=== PATIENT | female | born 1955 | race Caucasian/White ===

== ENCOUNTER 2017-07-11 08:14 | Outpatient (CLI) | payer OTHER | END 2017-07-11 08:15 | disposition home or self-care (01) | LOC: BICULT 08:14 | PROVIDERS: ATTEND Nurse Practitioner | DX: R10.10 Upper abdominal pain, unspecified (principal); K80.20 Calculus of gallbladder without cholecystitis without obstruction | CPT/HCPCS: 76700 ==

== ENCOUNTER 2017-07-20 09:46 | Outpatient (CLI) | payer OTHER ==
[2017-07-20 11:42] LABS: Folate (Folic Acid) 12.7 ng/mL (7.0-31.4)
--- NOTE | 2017-07-20 21:56 | EKG ---
Test Reason : Blood Pressure : / mmHG Vent. Rate : 057 BPM Atrial Rate : 057 BPM P-R Int : 142 ms QRS Dur : 076 ms QT Int : 410 ms P-R-T Axes : 051 004 010 degrees QTc Int : 399 ms Sinus bradycardia Cannot rule out Anterior infarct , age undetermined /Doubtful Abnormal ECG When compared with ECG of 11-MAR-2010 10:05, Questionable change in QRS axis Confirmed by CHAPIN TADEO ([id number]) on 07/20/2017 9:55:53 PM Referred By: ALEXUS Confirmed By:CHAPIN TADEO
== END 2017-07-20 09:47 | disposition home or self-care (01) ==
LOC: LABBT 09:46
PROVIDERS: ATTEND Specialist
DX: Z01.818 Encounter for other preprocedural examination (principal); K80.12 Calculus of gallbladder with acute and chronic cholecystitis without obstruction
CPT/HCPCS: 82607; 82746; 84425; 93005; 93010

== ENCOUNTER 2017-07-26 07:38 | Inpatient (IN) | payer OTHER ==
[2017-07-20 10:40] VITALS: BMI 26.5
--- NOTE | 2017-07-21 02:41 | HP ---
HISTORY OF PRESENT ILLNESS: Aliyah Dos Santos is a 62-year-old female referred by Deyanira Geller, ARIE, f or symptomatic cholelithiasis. Ultrasound reveals gallstones with prominent bile duct 7 mm. The pat iejoaquin reports having had symptoms for several months, last episode in 06/2017, but nausea, bloating, a nd gas pain subsequently. She had pain radiating to her back and nausea. She has had laboratories a t [facility] 06/29/2017, normal CBC, liver function tests with bilirubin slightly elevated to 1.5. 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 Plan is fo r laparoscopic cholecystectomy cholangiogram. Risks of infection, bleeding, visceral and biliary inj ury explained. She consents. Questions answered. ALLERGIES: None. TOBACCO: None. ALCOHOL: None. PAST SURGICAL HISTORY: Arthroscopy, both knees; foot surgery; tonsillectomy; laparoscopic Lobito-en-Y gastric bypass 10 years ago with a preoperative weight of 210 pounds lowest weight of 87 pounds, curr ently 146 pounds. She has lost about 15 pounds recently due to her biliary symptoms. About a year a fter laparoscopic Lobito-en-Y gastric bypass, she had a laparoscopic revision of gastrojejunostomy. Sh e regained weight after this. She probably had a stricture. 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 MEDICATIONS: Atorvastatin, Pepcid, aspirin. She states she takes her vitamins. FAMILY HISTORY: Father with coronary artery disease. Mother with pancreatic cancer. PHYSICAL EXAMINATION: VITAL SIGNS: 146 pounds, 62 inches, 26 BMI, 108/59, 69, 99.5 degrees. HEAD, EYES, EARS, NOSE, AND THROAT: Unremarkable. LUNGS: Clear to auscultation. CARDIAC: Regular rate and rhythm without murmur or gallop. ABDOMEN: Soft, nontender, no masses. EXTREMITIES: Unremarkable. ASSESSMENT AND PLAN: Symptomatic cholelithiasis. Recommend laparoscopic video cholecystectomy. Ris ks and benefits noted. She consents. Questions answered.
[2017-07-26] MEDS ORDERED: Lidocaine 2% w/Epinephrine 1:200K 20 ML VIAL ONE (08:11)
[2017-07-26] MEDS ORDERED: Bupivacaine 0.25% HCL 30 ML VIAL ONE (08:11)
[2017-07-26] MEDS ORDERED: Midazolam HCl 2 mg/2 ml Vial ONE (08:19)
[2017-07-26] MEDS ORDERED: Fentanyl 100 MCG/2 ML VIAL ONE ×2 (08:19→10:28)
[2017-07-26] MEDS ORDERED: Iothalamate Meglumine 60% 50 ML VIAL FS ONE (08:35)
[2017-07-26] MEDS ORDERED: CEFAZOLIN/Water 2 GM/20 ML SYRINGE ONE (08:43)
[2017-07-26] MEDS ORDERED: Ketorolac Tromethamine 30 MG/ML VIAL ONE (08:43)
[2017-07-26] MEDS ORDERED: Ondansetron HCl/PF 4 MG/2 ML Vial IVP PRN ×2 (10:02→10:03)
[2017-07-26] MEDS ORDERED: Dextrose 5% in Water 1,000 ML IV PRN (10:02)
[2017-07-26] MEDS ORDERED: Dextrose 50% Abboject 50 ML SYRINGE SLOW IVP PRN (10:02)
[2017-07-26] MEDS ORDERED: hydrALAZINE 20 MG/ML VIAL SLOW IVP PRN (10:02)
[2017-07-26] MEDS ORDERED: Ondansetron ODT 4 MG TAB PO PRN (10:02)
[2017-07-26] MEDS ORDERED: HYDROmorphone 2 MG/ML VIAL SLOW IVP PRN (10:03)
[2017-07-26] MEDS ORDERED: Promethazine HCl 25 MG/ML VIAL SLOW IVP PRN (10:03)
[2017-07-26] MEDS ORDERED: Promethazine HCl 25 MG/ML VIAL IM PRN (10:03)
[2017-07-26] MEDS ORDERED: Ketorolac Tromethamine 30 MG/ML VIAL IVP PRN (10:06)
[2017-07-26] MEDS ORDERED: Acetaminophen 500 MG TAB PO PRN (10:06)
[2017-07-26] MEDS ORDERED: Acetaminophen 1,000 MG in Premix Bag 1 BAG IVPB PRN (10:06)
[2017-07-26] MEDS ORDERED: traMADol HCl 50 MG TAB PO PRN ×2 (10:06)
[2017-07-26] MEDS ORDERED: Ondansetron ORAL SOLN. 4 MG/5 ML UDCUP PO PRN ×2 (10:09)
[2017-07-26] MEDS ORDERED: Ondansetron ODT 8 MG TAB PO PRN (10:09)
[2017-07-26] MEDS ORDERED: Ibuprofen 600 MG TAB PO PRN (10:09)
[2017-07-26] MEDS ORDERED: Ondansetron ODT 8 MG TAB SL PRN (10:09)
[2017-07-26] MEDS ORDERED: Famotidine 20 MG TAB PO PRN (10:09)
--- NOTE | 2017-07-26 10:09 | RAD ---
INTRAOPERATIVE CHOLANGIOGRAM: History: Cholecystitis. FINDINGS: Intraoperative fluoroscopy is provided for cholangiogram as performed by Dr. Castillo. Two spot fluoros copic images show dilatation of the biliary system with a meniscus sign at the central biliary duct s uggestive of high grade obstruction. Contrast is not seen within the duodenum. Fluoro time _= 23 seconds. POS: [facility]
[2017-07-26] MEDS ORDERED: D5 1/2 NS w/20 mEq KCL 1,000 ML ONE (11:46)
[2017-07-26] MEDS: D5 1/2 NS w/20 mEq KCL 1,000 ML IV SCH ×2 (12:18→18:10)
--- NOTE | 2017-07-26 15:01 | OP ---
DATE OF PROCEDURE: 07/26/2017 PREOPERATIVE DIAGNOSES: Chronic cholecystitis and cholelithiasis, bile duct 8 mm on preoperative ult rasound. Bilirubin 1.5. POSTOPERATIVE DIAGNOSES: Chronic cholecystitis, cholelithiasis, choledocholithiasis. PROCEDURE: Laparoscopic video cholecystectomy. Cholangiogram revealing distal common bile duct fill ing defect stone without emptying of the duodenum. Note, intraoperative consultation Dr. Roque who w ill see her today and perform ERCP tomorrow. SURGEON: Hemant Castillo M.D. ANESTHESIA: General. Local 0.5% Marcaine, 30 mL, mixed with 2% Xylocaine, 10 mL PROCEDURE IN DETAIL: The patient was taken to the operating room where under general anesthesia, abd omen was prepared with ChloraPrep, draped in routine fashion. Local anesthetic infiltrated into skin and subcutaneous tissue about the operative sites. Infraumbilical incision made and pneumoperitoneu m to 15 mmHg obtained with the Veress needle, replacing it with a 5 port and video laparoscope insert ed. Right subxiphoid incision made and 11 port placed. Right subcostal incision made mid clavicular anterior axillary lines and 5 ports placed. Liver appeared to be normal. Fundus of gallbladder gra sped and reflected cephalad. Infundibulum grasped and reflected laterally. Cystic artery and duct d issected free. Critical view obtained with pericholecystic dissection 2/3 of the cystic plate and th e cystic artery double clipped proximally. Cystic duct singly clipped on the gallbladder side. An o pening made in the cystic duct and cholangiocath inserted and cholangiogram was obtained using fluoro scopy revealing dilated left and right hepatic ducts, common bile duct, common hepatic duct with a di stal filling defect without emptying into the duodenum. Two cholangiograms were obtained after flush ing it with saline without change. Dr. Roque Gastroenterology was consulted and called as well as jihan love's brother to inform them. Dr. Roque will see the patient later today and ERCP perform tomorrow . She will be kept overnight. The patient's son was notified after the operation. At this point, c holangiocath removed. Cystic duct triply clipped. Cystic artery and duct divided. The gallbladder dissected free from the liver bed obtaining good hemostasis prior to division of final peritoneal att achments. Gallbladder and contents removed and submitted to Pathology. Good hemostasis ensured with the cautery. Irrigant and pneumoperitoneum evacuated. All instruments removed and all skin incisio ns approximated with interrupted subdermal 4-0 Monocryl and DermaGlue applied.
[2017-07-26] MEDS ORDERED: Glycopyrrolate 0.2 MG/ML 5 ML SYRINGE ONE (15:52)
[2017-07-26] MEDS ORDERED: Ondansetron HCl/PF 4 MG/2 ML Vial ONE (15:52)
[2017-07-26] MEDS ORDERED: Lidocaine 1% PF 5 ML VIAL ONE (15:52)
[2017-07-26] MEDS ORDERED: Propofol 200 MG/20 ML VIAL ONE (15:52)
[2017-07-26] MEDS ORDERED: Dexamethasone 20 MG/5 ML VIAL ONE (15:52)
[2017-07-26] MEDS ORDERED: Enoxaparin Sodium 40 MG/0.4 ML SYRINGE SC SCH (21:00)
[2017-07-26] MEDS ORDERED: Famotidine 20 MG TAB PO SCH (21:00)
[2017-07-27 04:30] VITALS: BP 90/52; TEMP 98.3
--- NOTE | 2017-07-27 05:57 | DIS ---
PREOPERATIVE DIAGNOSES: 1. Cholecystitis, cholelithiasis. 2. Choledocholithiasis. 3. History of Lobito-en-Y gastric bypass, successful weight loss. HISTORY: A 62-year-old female with symptomatic gallstones presents to the office and scheduled for o utpatient laparoscopic cholecystectomy. Bilirubin 1.5, bile duct by ultrasound was 8 mm. She underw ent cholangiograms with laparoscopic cholecystectomy revealing choledocholithiasis. Patient is trans ferred to Dr. Donny Lozada in [facility] for interventional Gastroenterology , resolution of her choledocholithiasis procedure, which cannot be done locally in place of her Lobito- en-Y gastric bypass. I have explained to the patient and her son. She will be discharged when bed i s available, and transfer process is in progress.
[2017-07-27 06:03] LABS: #Lymphocytes 0.9 thou/uL (1.20-3.40); #Monocytes 0.6 thou/uL (0.11-0.59); #Neutrophils 14.3 thou/uL (1.40-6.50); %Basophils 0.1 % (0.0-1.0); %Lymphocytes 5.8 % (21.0-51.0); %Monocytes 3.7 % (0.0-10.0); %Neutrophils 90.4 % (42.0-75.0); Hemoglobin 12.1 g/dL (12.0-16.0); Mean Corpuscular Hemoglobin 30.2 pg (27.0-31.0); Mean Corpuscular Volume 94.3 fl (81.0-99.0); Platelet Count 287 thou/uL (130-400); RBC Distribution Width 12.5 % (11.5-14.5); Red Blood Cell (RBC) Count 4.01 mill/uL (4.20-5.40); White Blood Cell (WBC) Count 15.8 thou/uL (4.8-10.8)
[2017-07-27 06:25] LABS: ALT (SGPT) 260 U/L (8-55); AST (SGOT) 289 U/L (5-34); Albumin 3.2 g/dL (3.4-4.8); Alkaline Phosphatase 1242 U/L (40-150); Anion Gap 12 mmol/L (10-20); BUN (Urea Nitrogen) 9 mg/dL (9.8-20.1); Bilirubin, Total 4.2 mg/dL (0.2-1.2); Calc. Creatinine Clearance 85 mL/min (70-130); Calcium 9.6 mg/dL (7.8-10.44); Carbon Dioxide 25 mmol/L (23-31); Chloride 108 mmol/L (98-107); Estimated GFR-MDRD 83; Globulin 2.6 g/dL (2.4-3.5); Glucose 134 mg/dL (80-115); Potassium 4.9 mmol/L (3.5-5.1); Protein, Total 5.8 g/dL (6.0-8.3); Sodium 140 mmol/L (136-145)
[2017-07-27] MEDS ORDERED: Sodium Chloride 0.9% 1,000 ML IV SCH (08:00)
[2017-07-27] MEDS ORDERED: Aspirin 81 mg Enteric Coated Tablet PO SCH (09:00)
[2017-07-27] MEDS ORDERED: Atorvastatin Calcium 20 MG TAB PO SCH (09:00)
== END 2017-07-27 06:30 | disposition short-term general hospital (02) | DRG 418 ==
LOC: SDC 07:38 → SURG A 10:02
PROVIDERS: ADMIT Specialist; ATTEND Specialist
PROC: 0FT44ZZ Resection of Gallbladder, Percutaneous Endoscopic Approach (ICD-10-PCS; principal; 2017-07-26)
PROC: BF031ZZ Plain Radiography of Gallbladder and Bile Ducts using Low Osmolar Contrast (ICD-10-PCS; 2017-07-26)
DX: K80.12 Calculus of gallbladder with acute and chronic cholecystitis without obstruction (principal); K80.64 Calculus of gallbladder and bile duct with chronic cholecystitis without obstruction; E11.8 Type 2 diabetes mellitus with unspecified complications; Z98.84 Bariatric surgery status; Z79.82 Long term (current) use of aspirin
CPT/HCPCS: 36415; 47532; 80053; 85025; 88304; J0131; J1100; J1610; J1650; J1885; J1956; J2001; J2250; J2405; J2704; J3010; Q9961; S0020

== ENCOUNTER 2019-06-28 11:56 | Outpatient (CLI) | payer OTHER | END 2019-06-28 11:57 | disposition home or self-care (01) | LOC: CTENTCT 11:56 | PROVIDERS: ATTEND Specialist | DX: J33.9 Nasal polyp, unspecified (principal) | CPT/HCPCS: 70486 ==

== ENCOUNTER 2019-07-11 08:21 | Day surgery (SDC) | payer OTHER ==
[2019-07-10 11:08] VITALS: BMI 29.8
[2019-07-11] MEDS ORDERED: Lidocaine 1% PF 5 ML VIAL ONE (09:11)
[2019-07-11] MEDS ORDERED: PROPOFOL 200 MG/20 ML VIAL ONE (09:11)
[2019-07-11] MEDS ORDERED: Dexamethasone 20 MG/5 ML VIAL ONE (09:11)
[2019-07-11] MEDS ORDERED: Ondansetron PF 4 MG/2 ML Vial ONE (09:11)
[2019-07-11] MEDS ORDERED: PHENYLEPHRINE-NS 100 MCG/ML 10 ML SYRINGE ONE (09:11)
[2019-07-11] MEDS ORDERED: AFRIN NASAL MIST 15 ML BOT ONE ×2 (09:36→11:14)
[2019-07-11 10:02] LABS: Hemoglobin 14.7 g/dL (12.0-16.0)
[2019-07-11 10:12] LABS: Anion Gap 12 mmol/L (10-20); BUN (Urea Nitrogen) 11 mg/dL (9.8-20.1); Calc. Creatinine Clearance 85 mL/min (70-130); Calcium 9.5 mg/dL (7.8-10.44); Carbon Dioxide 26 mmol/L (23-31); Chloride 109 mmol/L (98-107); Estimated GFR-MDRD 74; Glucose 116 mg/dL (80-115); Potassium 4.2 mmol/L (3.5-5.1); Sodium 143 mmol/L (136-145)
[2019-07-11] MEDS ORDERED: Lidocaine 1% w/Epinephrine 1:100K 20 ML VIAL ONE (11:14)
[2019-07-11] MEDS ORDERED: Bacitracin Zinc Ointment 30 gm TUBE ONE (11:14)
[2019-07-11] MEDS ORDERED: EPINEPHrine 1 MG/ML AMP ONE (11:14)
[2019-07-11] MEDS ORDERED: Fentanyl 100 MCG/2 ML VIAL ONE ×2 (11:20→12:44)
[2019-07-11] MEDS ORDERED: Midazolam HCl 2 mg/2 ml Vial ONE (11:20)
[2019-07-11] MEDS ORDERED: HYDROcodone/Acetaminophen 5/325 mg Tablet ONE (12:53)
--- NOTE | 2019-07-11 15:26 | OP ---
DATE OF PROCEDURE: 07/11/2019 PREOPERATIVE DIAGNOSES: 1. Chronic sinusitis. 2. Deviated septum. 3. Hypertrophic inferior turbinates. 4. Chronic frontal pain. 5. Pansinusitis. POSTOPERATIVE DIAGNOSES: 1. Chronic sinusitis. 2. Deviated septum. 3. Hypertrophic inferior turbinates. 4. Chronic frontal pain. 5. Pansinusitis. PROCEDURES PERFORMED: 1. Bilateral nasal endoscopy with maxillary antrostomy with removal of tissue. 2. Bilateral nasal endoscopy with total ethmoidectomy. 3. Bilateral nasal endoscopy with frontal sinusotomy. 4. Right frontal sinusotomy with removal of osteoma. 5. Septoplasty. 6. Bilateral nasal endoscopy with submucosal resection of inferior turbinates. DESCRIPTION OF PROCEDURE: BILATERAL NASAL ENDOSCOPY WITH MAXILLARY ANTROSTOMY WITH REMOVAL OF TISSUE: The uncinate was then identified and the extent of the uncinate was appreciated by out-fracturing the uncinate with the ball-tip probe. We then used the sickle blade to disarticulate the uncinate from the lateral nasal wall. This was then removed with straight biting and upbiting punches with the remaining shrouds of mucosa and bony septum removed with the micro-debrider. The natural os of the maxillary sinus was then identified and enlarged with the maxillary punches and back biting forceps. BILATERAL NASAL ENDOSCOPY WITH TOTAL ETHMOIDECTOMY: The anterior face of the ethmoid bulla was entered and with the micro-debrider, dissection continued posteriorly to the ground lamella. The limits of dissection included the insertion of the middle turbinate, medial orbital wall, and base of skull. We similarly identified the frontal recess and removed shrouds of bone and debris in that region to obtain patency into the agger nasi region and frontal recess. We then entered the ground lamella and its anteroinferior aspect and proceeded posteriorly, opening the posterior ethmoid air-cell system. Again, the limits of dissection included the base of skull and medial orbital wall. BILATERAL NASAL ENDOSCOPY WITH FRONTAL SINUSOTOMY: Following the ethmoidectomy, we then turned our attention to the frontal nasal recess. The agger nasi cells were addressed and the frontal recess was exposed. The natural opening to the frontal sinus was identified. At this point, any obstructing shrouds of mucosa and bony fragments were removed with a curved microdebrider. The wound was then examined and found to be free of any obstructing debris. We then turned our attention to the contralateral side and performed a similar procedure again under endoscopic visualization using a 45-degree scope. We were able to visualize the frontal recess. Obstructing shrouds of mucosa and bone were removed with a microdebrider. The natural os of frontal sinus was identified and enlarged and irrigated. At this point, the frontal sinusotomy was completed and we turned to the next area of concern. RIGHT FRONTAL SINUSOTOMY WITH REMOVAL OF OSTEOMA: We encountered a large firm round bony osteoma that obstructed a right frontal sinus that was contributing to the chronic facial pain. We got our curved drill and then carefully drilled away the inferior anterior aspect of the osteoma. At which point, it was able to be mobilized with a curved curette from the frontal bone. This was then delivered into the nose and the frontal sinusotomy could be completed. SEPTOPLASTY: After local anesthesia was infiltrated into the submucoperichondrial plane, a standard Donnie incision was made with a #15 blade down to the level of the septal cartilage. The caudal elevator was used to elevate the mucoperichondrium from the underlying cartilage. We then proceeded beyond the bony cartilaginous junction and elevated the bony periosteum as well. Great attention was paid to the spur to prevent rent formation in the septal flap. A transcartilaginous incision was then made, while preserving an adequate dorsal and caudal cartilaginous strut for tip support. The deformed cartilage was removed and disarticulated from the bony cartilaginous junction and maxillary crest. This was placed in saline and would later be crushed and returned to the mucoperichondrial envelope. We then elevated the contralateral periosteum from the bony cartilaginous region and removed the deformed portions of the bone and bony spurs. The cartilage was then crushed and placed back into the mucoperichondrial envelope and the mucosa was re-approximated with a quilting stitch composed of rapidly absorbent gut suture. The Donnie incision was also closed with interrupted gut suture. At the completion of the case, Mariano splints were placed and suture secured to the caudal septum. BILATERAL NASAL ENDOSCOPY WITH SUBMUCOSAL RESECTION OF INFERIOR TURBINATES: After consent was obtained, the patient was identified, brought to the operating room, and placed on the operating room table in the supine position. Consent was obtained, notifying the patient of the possibility of additional infections, bleeding, brain injury, and eye/orbital injury. The patient was placed on the operating room table, and general endotracheal anesthesia and intravenous access was obtained. The patient was then positioned, prepped and draped for endoscopic sinus surgery. Nasal preparation included trimming nasal vestibular hairs and spraying in topical Afrin. We then placed Afrin topical solution on nasal pledgets and strategically located them intranasally. The perinasal mucosa was injected with 1% lidocaine with 1:100,000 epinephrine in the submucoperichondrial plane of the septum, lateral nasal wall, and anterior to the uncinate. The patient was then prepped and draped in a sterile fashion and positioned for endoscopic sinus surgery. With the 0-degree endoscope, the patient underwent systematic nasal endoscopy. There were no suspicious internasal masses or lesions identified. We then focused our attention to the osteomeatal complex region under the middle turbinate. The inferior turbinates were visualized with a 0 degree endoscope and outfractured with a Britany elevator. The inferior medial aspect was cauterized with the electrocautery. Hemostasis was obtained . After adequate airway was established, we turned our attention to the contralateral side and used a similar procedure. Again, a Britany elevator was used to outfracture inferior turbinates under endoscopic visualization. With a suction cautery, the free inferior medial aspect was cauterized under direct visualization along the length of the inferior turbinate. At this point, we then turned our attention to the contralateral side and proceeded with endoscopic sinus surgery. At the completion of the case, Rice keel splints were placed in the ethmoid cavities after the ethmoidectomy. There were no complications. The patient tolerated the procedure well and was discharged to the recovery room in stable condition prior to return to the preoperative day stay with ultimate discharge home. Prescriptions for pain medication and antibiotics were provided. The patient received intramuscular Depo-Medrol during the case. Job ID: [id number]
--- NOTE | 2019-07-15 00:06 | EKG ---
Test Reason : PREOP Blood Pressure : / mmHG Vent. Rate : 065 BPM Atrial Rate : 065 BPM P-R Int : 150 ms QRS Dur : 082 ms QT Int : 410 ms P-R-T Axes : 037 -10 -04 degrees QTc Int : 426 ms Normal sinus rhythm Minimal voltage criteria for LVH, may be normal variant Borderline ECG When compared with ECG of 20-JUL-2017 10:32, No significant change was found Confirmed by Raji CASTAÑEDA ([id number]) on 07/15/2019 12:06:07 AM Referred By: HEBER Confirmed By:Raji CASTAÑEDA
[2019-07-16 07:13] LABS: Fungus Stain Final report (.)
== END 2019-07-11 14:00 | disposition home or self-care (01) ==
LOC: SDC 08:21
PROVIDERS: ATTEND Specialist
PROC: 099R8ZZ Drainage of Left Maxillary Sinus, Via Natural or Artificial Opening Endoscopic (ICD-10-PCS; principal; 2019-07-11)
PROC: 09BS8ZZ Excision of Right Frontal Sinus, Via Natural or Artificial Opening Endoscopic (ICD-10-PCS; principal; 2019-07-11)
PROC: 09BL8ZZ Excision of Nasal Turbinate, Via Natural or Artificial Opening Endoscopic (ICD-10-PCS; principal; 2019-07-11)
PROC: 099Q8ZZ Drainage of Right Maxillary Sinus, Via Natural or Artificial Opening Endoscopic (ICD-10-PCS; principal; 2019-07-11)
PROC: 09BT8ZZ Excision of Left Frontal Sinus, Via Natural or Artificial Opening Endoscopic (ICD-10-PCS; principal; 2019-07-11)
PROC: 09BM8ZZ Excision of Nasal Septum, Via Natural or Artificial Opening Endoscopic (ICD-10-PCS; 2019-07-11)
DX: J32.4 Chronic pansinusitis (principal); J34.2 Deviated nasal septum; J34.3 Hypertrophy of nasal turbinates; J33.9 Nasal polyp, unspecified; G89.29 Other chronic pain; R51 Headache; B96.89 Other specified bacterial agents as the cause of diseases classified elsewhere; E78.5 Hyperlipidemia, unspecified; H90.3 Sensorineural hearing loss, bilateral; G51.39 Clonic hemifacial spasm, unspecified; H93.19 Tinnitus, unspecified ear; H74.09 Tympanosclerosis, unspecified ear; Z79.82 Long term (current) use of aspirin; Z79.899 Other long term (current) drug therapy; Z98.84 Bariatric surgery status
CPT/HCPCS: 36415; 80048; 85014; 85018; 87070; 87077; 87102; 87186; 87205; 87206; 93005; 93010; J0171; J1100; J2001; J2250; J2405; J2704; J3010

== ENCOUNTER 2021-06-30 14:16 | Outpatient (CLI) | payer MEDICARE, OTHER ==
[2021-06-30 15:25] LABS: Bilirubin Neg (Negative); Blood, Urine Negative (Negative); Clarity Clear (Clear); Glucose, Urine (Dipstick) Normal (Negative); Ketone, Urine Negative (Negative); Leukocyte 25 (Negative); Nitrite Negative (Negative); Protein, Urine (Dipstick) Negative (Neg-Trace); Urobilinogen Normal mg/dL (Less than 2)
[2021-06-30 15:30] LABS: #Basophils 0.1 10x3/uL (0.0-0.2); #Eosinphils 0.3 10x3/uL (0.0-0.5); #Monocytes 0.7 10x3/uL (0.0-1.1); #Neutrophils 4.1 10x3/uL (1.5-8.4); %Basophils 0.8 % (0.0-2.0); %Eosinophils 4.1 % (0.0-6.0); %Lymphocytes 30.4 % (18.0-47.0); %Neutrophils 55.4 % (40.0-75.0); Hemoglobin 13.2 g/dL (12.0-15.5); Mean Corpuscular HGB CONC 31.8 g/dL (32.0-36.0); Mean Corpuscular Hemoglobin 29.9 pg (27.0-33.0); Mean Corpuscular Volume 93.9 fl (81.6-98.3); Mean Platelet Volume 9.9 fl (7.4-10.4); Platelet Count 284 10x3/uL (150-450); RBC Distribution Width 12.2 % (11.5-14.5); Red Blood Cell (RBC) Count 4.42 10x6/uL (3.90-5.03); White Blood Cell (WBC) Count 7.5 10x3/uL (3.5-10.5)
[2021-06-30 15:45] LABS: INR-International Normal Ratio 0.9; Prothrombin Time 10.3 sec (9.5-12.1)
[2021-06-30 15:53] LABS: Anion Gap 11 mmol/L (10-20); BUN (Urea Nitrogen) 19 mg/dL (9.8-20.1); Calc. Creatinine Clearance 0 mL/min (70-130); Calcium 9.3 mg/dL (7.8-10.44); Carbon Dioxide 26 mmol/L (23-31); Chloride 110 mmol/L (98-107); Glucose 66 mg/dL (80-115); Potassium 4.3 mmol/L (3.5-5.1); Sodium 143 mmol/L (136-145)
[2021-06-30 23:50] LABS: SARS-CoV-2 PCR by NAA Not Detected (NotDetected)
== END 2021-06-30 14:17 | disposition home or self-care (01) ==
LOC: LABBT 14:16
PROVIDERS: ATTEND Orthopaedic Surgery
DX: Z01.818 Encounter for other preprocedural examination (principal); M17.12 Unilateral primary osteoarthritis, left knee; Z20.822 Contact with and (suspected) exposure to COVID-19
CPT/HCPCS: 71046; 80048; 81003; 85025; 85610; 86850; 86900; 86901; 87081; 93005; U0003; U0005; 93010

== ENCOUNTER 2021-07-05 05:19 | Observation (INO) | payer MEDICARE, OTHER ==
[2021-06-24 10:54] VITALS: BMI 27.1
[2021-06-30 15:25] LABS: Bilirubin Neg (Negative); Blood, Urine Negative (Negative); Clarity Clear (Clear); Glucose, Urine (Dipstick) Normal (Negative); Ketone, Urine Negative (Negative); Leukocyte 25 (Negative); Nitrite Negative (Negative); Protein, Urine (Dipstick) Negative (Neg-Trace); Urobilinogen Normal mg/dL (Less than 2)
[2021-06-30 15:30] LABS: #Basophils 0.1 10x3/uL (0.0-0.2); #Eosinphils 0.3 10x3/uL (0.0-0.5); #Monocytes 0.7 10x3/uL (0.0-1.1); #Neutrophils 4.1 10x3/uL (1.5-8.4); %Basophils 0.8 % (0.0-2.0); %Eosinophils 4.1 % (0.0-6.0); %Lymphocytes 30.4 % (18.0-47.0); %Neutrophils 55.4 % (40.0-75.0); Hemoglobin 13.2 g/dL (12.0-15.5); Mean Corpuscular HGB CONC 31.8 g/dL (32.0-36.0); Mean Corpuscular Hemoglobin 29.9 pg (27.0-33.0); Mean Corpuscular Volume 93.9 fl (81.6-98.3); Mean Platelet Volume 9.9 fl (7.4-10.4); Platelet Count 284 10x3/uL (150-450); RBC Distribution Width 12.2 % (11.5-14.5); Red Blood Cell (RBC) Count 4.42 10x6/uL (3.90-5.03); White Blood Cell (WBC) Count 7.5 10x3/uL (3.5-10.5)
[2021-06-30 15:45] LABS: INR-International Normal Ratio 0.9; Prothrombin Time 10.3 sec (9.5-12.1)
[2021-06-30 15:53] LABS: Anion Gap 11 mmol/L (10-20); BUN (Urea Nitrogen) 19 mg/dL (9.8-20.1); Calc. Creatinine Clearance 0 mL/min (70-130); Calcium 9.3 mg/dL (7.8-10.44); Carbon Dioxide 26 mmol/L (23-31); Chloride 110 mmol/L (98-107); Glucose 66 mg/dL (80-115); Potassium 4.3 mmol/L (3.5-5.1); Sodium 143 mmol/L (136-145)
[2021-06-30 23:50] LABS: SARS-CoV-2 PCR by NAA Not Detected (NotDetected)
[2021-07-05] MEDS ORDERED: Tranexamic Acid 1,000 MG/10 ML VIAL ONE (06:17)
[2021-07-05] MEDS ORDERED: Vancomycin 1 GM/200 ML BAG ONE (06:17)
[2021-07-05] MEDS ORDERED: Sodium Chloride 0.9% 100 ML ONE (06:17)
[2021-07-05] MEDS ORDERED: Fentanyl 100 MCG/2 ML VIAL ONE ×4 (06:21→10:27)
[2021-07-05] MEDS ORDERED: Midazolam HCl 2 mg/2 ml Vial ONE (06:45)
[2021-07-05] MEDS ORDERED: Lidocaine 1% PF 5 ML VIAL ONE (06:46)
[2021-07-05] MEDS ORDERED: Bupivacaine PF 0.5% 30 ML VIAL ONE (06:46)
[2021-07-05] MEDS ORDERED: ceFAZolin 2 GM/Dextrose 50 ML IVPB ONE ×2 (07:06→14:25)
[2021-07-05] MEDS ORDERED: Acetaminophen 325 MG TAB PO PRN (07:23)
[2021-07-05] MEDS ORDERED: traMADol HCl 50 MG TAB PO PRN ×3 (07:23→09:00)
[2021-07-05] MEDS ORDERED: Promethazine HCl 25 MG/ML VIAL IM PRN ×3 (07:23→09:29)
[2021-07-05] MEDS ORDERED: Fentanyl 100 MCG/2 ML VIAL SLOW IVP PRN (07:23)
[2021-07-05] MEDS ORDERED: Zolpidem Tartrate 5 MG TAB PO PRN ×2 (07:23→09:00)
[2021-07-05] MEDS ORDERED: HYDROcodone/Acetaminophen 10/325 mg Tablet PO PRN ×3 (07:23→09:00)
[2021-07-05] MEDS ORDERED: Ondansetron PF 4 MG/2 ML Vial IVP PRN ×2 (07:23→09:00)
[2021-07-05] MEDS ORDERED: diphenhydrAMINE 25 MG CAP PO PRN (07:23)
[2021-07-05] MEDS ORDERED: Dexamethasone 20 MG/5 ML VIAL ONE (07:30)
[2021-07-05] MEDS ORDERED: Tranexamic Acid 1,000 MG in Sodium Chloride 0.9% 100 ML IVPB SCH (07:30)
[2021-07-05] MEDS ORDERED: Ondansetron PF 4 MG/2 ML Vial ONE (07:30)
[2021-07-05] MEDS ORDERED: Bupivacaine HCl 0.5%/Epinephrine 1:200,000/PF 30 ml Vial ONE (07:30)
[2021-07-05] MEDS ORDERED: PROPOFOL 200 MG/20 ML VIAL ONE (07:30)
[2021-07-05] MEDS ORDERED: Fentanyl 100 MCG/2 ML VIAL IV PRN (08:50)
[2021-07-05] MEDS ORDERED: Non-Formulary Item 1 EACH (Multivitamin [Multi-Vitamin Daily] 1 TABLET Tablet) PO SCH (09:00)
[2021-07-05] MEDS ORDERED: Ropivacaine 0.2% 550 ML 550 ML NERVE BLCK SCH (09:00)
[2021-07-05] MEDS ORDERED: HYDROmorphone 2 MG/ML VIAL SLOW IVP PRN (09:29)
[2021-07-05] MEDS ORDERED: Ondansetron HCl/PF 4 MG/2 ML Vial IVP PRN (09:29)
[2021-07-05] MEDS ORDERED: Promethazine HCl 25 MG/ML VIAL IVPB PRN (09:29)
[2021-07-05] MEDS ORDERED: Ketorolac Tromethamine 30 MG/ML VIAL ONE (11:50)
[2021-07-05] MEDS: Ketorolac Tromethamine 30 MG/ML VIAL IVP SCH ×3 (11:52→23:04)
[2021-07-05] MEDS ORDERED: Ketorolac Tromethamine 30 MG/ML VIAL IVP SCH (14:00)
[2021-07-05] MEDS: ceFAZolin 2 GM/Dextrose 50 ML 2 GM in Premix Bag 1 BAG IVPB SCH ×2 (14:27→23:03)
[2021-07-05] MEDS: Ferrous Gluconate 324 MG TAB PO SCH ×2 (15:25→21:01)
[2021-07-05] MEDS: Senokot S 8.6-50 MG TAB PO SCH ×2 (15:25→21:00)
[2021-07-05] MEDS: Multivitamin W/ Minerals 1 TAB PO SCH (15:25)
[2021-07-05] MEDS: Aspirin 81 mg Enteric Coated Tablet PO SCH ×2 (15:25→21:01)
[2021-07-05] MEDS ORDERED: FLU VACC QS2021-22(65YR UP)/PF 240 MCG/0.7 ML SYRINGE IM ONE (17:00)
[2021-07-05] MEDS ORDERED: Vancomycin 1 GM in Premix Bag 1 BAG IVPB SCH (18:00)
[2021-07-05] MEDS: Sodium Chloride 0.9% 1,000 ML IV SCH ×2 (18:03→19:06)
[2021-07-06] MEDS: Sodium Chloride 0.9% 1,000 ML IV SCH ×2 (04:46→14:07)
[2021-07-06] MEDS: Ketorolac Tromethamine 30 MG/ML VIAL IVP SCH ×2 (06:05→11:40)
[2021-07-06 06:33] LABS: Hemoglobin 10.8 g/dL (12.0-16.0); Mean Corpuscular HGB CONC 32.9 g/dL (32.0-36.0); Mean Corpuscular Volume 94.3 fL (78.0-98.0); Mean Platelet Volume 7.7 fL (7.4-10.4); Platelet Count 212 thou/uL (130-400); RBC Distribution Width 11.2 % (11.5-14.5); Red Blood Cell (RBC) Count 3.47 mill/uL (4.20-5.40); White Blood Cell (WBC) Count 10.9 thou/uL (4.8-10.8)
[2021-07-06] MEDS: Senokot S 8.6-50 MG TAB PO SCH (08:59)
[2021-07-06] MEDS: Ferrous Gluconate 324 MG TAB PO SCH (09:00)
[2021-07-06] MEDS: HYDROcodone/Acetaminophen 10/325 mg Tablet PO PRN ×2 (09:00→15:57)
[2021-07-06] MEDS: Multivitamin W/ Minerals 1 TAB PO SCH (09:00)
[2021-07-06] MEDS ORDERED: Aspirin 81 mg Enteric Coated Tablet PO SCH (09:00)
[2021-07-06 15:35] VITALS: BP 141/73; TEMP 98.3
== END 2021-07-06 17:23 | disposition home or self-care (01) ==
LOC: SDC 05:19 → SURG A 07:23 → SDC 16:33 → SURG A 16:33
PROVIDERS: ADMIT Orthopaedic Surgery; ATTEND Orthopaedic Surgery
PROC: 0SRD0J9 Replacement of Left Knee Joint with Synthetic Substitute, Cemented, Open Approach (ICD-10-PCS; principal; 2021-07-05)
PROC: 8E0YXBZ Computer Assisted Procedure of Lower Extremity (ICD-10-PCS; 2021-07-05)
PROC: 3E0T3BZ Introduction of Anesthetic Agent into Peripheral Nerves and Plexi, Percutaneous Approach (ICD-10-PCS; 2021-07-05)
DX: M17.12 Unilateral primary osteoarthritis, left knee (principal); M21.062 Valgus deformity, not elsewhere classified, left knee; E78.5 Hyperlipidemia, unspecified; R73.03 Prediabetes; Z20.822 Contact with and (suspected) exposure to COVID-19
CPT/HCPCS: 20985; 27447; 64448; 80048; 81003; 85025; 85027; 85610; 86850; 86900; 86901; 87081; 96374; 96375; 96376; 97110; 97116 ×2; 97139 ×2; 97530; A4306; C1713; C1776; G0378 ×2; U0003; U0005; 36415; J0690; J1100; J1885; J2250; J2405; J2704; J2795; J3010; J3370; J3490; J7050; S0020

== ENCOUNTER 2022-07-11 12:05 | Outpatient (CLI) | payer MEDICARE, OTHER | END 2022-07-11 12:06 | disposition home or self-care (01) | LOC: BICMAMMO 12:05 | PROVIDERS: ATTEND Nurse Practitioner | DX: Z12.31 Encounter for screening mammogram for malignant neoplasm of breast (principal) | CPT/HCPCS: 77063; 77067 ==